=== PATIENT | female | born 1940 | race Caucasian/White ===

== ENCOUNTER → 2020-10-05 | Outpatient (CLI) | payer MEDICARE, OTHER ==
[~2020-10-05] MED LIST: ASPIRIN CHEWABL81 MG PO; BACTROBAN OINT22 GM EXT; CATAPRES 0.1MG0.1 MG PO; CRESTOR20 MG PO; DEXILANT60 MG PO; DITROPAN 5 MG TA5 MG PO; GLIPIZIDE-METF1 EAC2 PO; IMDUR ER TAB 3030 MG PO; LANTUS100 UNIT/1 SQ; LASIX40 MG PO; LOPRESSOR 25 MG25 MG PO; LYRICA100 MG PO; MACROBID 100 M100 M1 PO; MIRALAX17 GM PO; NORCO 5-325 TA1 EACH PO; NORVASC 5 MG TAB5 MG PO; NOVOLOG MI100 UNIT/1 SQ; OMNICEF 300 MG300 MG PO; PROVENTIL HFA6.7 GM INH; PYRIDIUM200 MG PO; REQUIP0.5 MG PO; ROCEPHIN 11 G/50 ML IV; SYNTHROID100 MCG PO; TOPROL XL100 MG PO; TYLENOL 500 MG500 MG PO; ULTRAM50 MG PO; ZOVIRAX 5% CREAM5 GM TOP; ZYLOPRIM 100 M100 MG PO
== END ==
LOC: CT 10:06
DX: R10.10 Upper abdominal pain, unspecified (principal)
CPT/HCPCS: 36415; 82565; 84520; Q9967

== ENCOUNTER 2021-02-20 12:57 | Emergency (ER) | payer MEDICARE, OTHER ==
[~2021-02-20 12:57] MED LIST changes: -LYRICA100 MG PO
[2021-02-20 16:04] LABS: HEMOGLOBIN 11.9 gm/dl (12.3-15.3); RED BLOOD COUNT 3.83 M/UL (4.00-5.10); WHITE BLOOD COUNT 8.5 K/UL (4.5-11.0)
[2021-02-20] MEDS ORDERED: LYRICA100 MG PO (17:05)
== END 2021-02-20 19:29 | disposition home or self-care (01) ==
LOC: ER1 12:57
PROVIDERS: Internal Medicine
DX: E11.40 Type 2 diabetes mellitus with diabetic neuropathy, unspecified (principal); K21.9 Gastro-esophageal reflux disease without esophagitis; I10 Essential (primary) hypertension; Z90.49 Acquired absence of other specified parts of digestive tract; Z90.89 Acquired absence of other organs; Z90.710 Acquired absence of both cervix and uterus
CPT/HCPCS: 70450; 80053; 82962; 83036; 85025; 93005; 99284; J7030

== ENCOUNTER → 2021-02-24 | Outpatient (CLI) | payer MEDICARE, OTHER ==
[~2021-02-24] MED LIST changes: +LYRICA100 MG PO
== END ==
LOC: EDSTATUS 09:19 → RAD 11:19
DX: R06.00 Dyspnea, unspecified (principal)
CPT/HCPCS: 71046

== ENCOUNTER → 2021-09-05 | Outpatient (CLI) | payer MEDICARE, OTHER | LOC: KOH-I 15:30 | DX: M79.604 Pain in right leg (principal); M79.89 Other specified soft tissue disorders; M79.671 Pain in right foot; S92.901A Unspecified fracture of right foot, initial encounter for closed fracture; M71.21 Synovial cyst of popliteal space [Baker], right knee | CPT/HCPCS: 73620; 93971 ==

== ENCOUNTER → 2021-11-06 | Outpatient (CLI) | payer MEDICARE, OTHER ==
[2021-11-06 13:10] LABS: HEMOGLOBIN 10.8 gm/dl (12.3-15.3); RED BLOOD COUNT 3.64 M/UL (4.00-5.10); WHITE BLOOD COUNT 9.9 K/UL (4.5-11.0)
== END ==
LOC: LAB 12:10
PROVIDERS: Internal Medicine
DX: N18.32 Chronic kidney disease, stage 3b (principal); E83.9 Disorder of mineral metabolism, unspecified; M89.9 Disorder of bone, unspecified; R80.1 Persistent proteinuria, unspecified
CPT/HCPCS: 36415; 80069; 82570; 83970; 84156; 85027